=== PATIENT | female | born 1945 | race Caucasian/White ===

== ENCOUNTER → 2016-07-25 | Outpatient (CLI) | payer MEDICARE ==
[~2016-07-25] MED LIST: ENAL1TAB9 PO; SIMV20TA PO
--- OUTSIDE RECORDS SUMMARY | 2016-07-25 11:17 | XMS REPORT | Continuity of Care Document ---
Author Author [facility] Organization [facility] Address Unknown Phone Unavailable Allergies Medications Problems Date Dx Coded Attending Type Code Diagnosis Diagnosed By 07/03/2015 Ot V76.12 07/03/2015 Ot 793.82 07/03/2015 Ot V76.12 07/03/2015 LEEANN LUO MD Ot V76.12 07/03/2015 LEEANN LUO MD Ot V76.12 08/01/2015 LUCIO CHAN APRN Ot Z12.31 Procedures Results Encounters ACCT No. Visit Date/Time Discharge Status Pt. Type Provider Facility Loc./Unit Complaint [id number] 12/09/2013 11:03:00 2013 23:59:59 CLS Outpatient LEEANN LUO MD [facility] [id number] 11/30/2012 08:57:00 2012 23:59:59 CLS Outpatient LEEANN LUO MD [facility] [id number] 07/03/2015 11:39:00 ACT Outpatient LUCIO CHAN APRN [facility] [id number] 01/09/2012 09:28:00 Document Registration [id number] 01/09/2011 08:02:00 Document Registration
--- NOTE | 2016-07-29 20:06 | Diagnostic Imaging Report ---
Bilateral screening mammogram The current study was also evaluated with a Computer Aided Detection (CAD) system. Indication: Screening. No current complaints stated on the questionnaire. COMPARISON: 07/03/15 FINDINGS: The breasts are composed of scattered fibroglandular densities. Occasional punctate calcifications seen. There is a biopsy clip in the right breast. Allowing for technique and positional differences, no suspicious change is seen. IMPRESSION: No significant change. ACR BI-RADS Category 2: Benign findings. Result letter will be mailed to the patient. Note: At least 10% of breast cancer is not imaged by mammography. Dictated by: Dictated on workstation # [id number]
== END ==
LOC: RAD 11:15
PROVIDERS: ATTEND Family Medicine
DX: Z12.31 Encounter for screening mammogram for malignant neoplasm of breast (principal)
CPT/HCPCS: 77067

== ENCOUNTER 2016-10-09 05:47 | Outpatient (CLI) | payer MEDICARE ==
[~2016-10-09] VITALS: Ht 154.9 cm; Wt 68.0 kg
[2016-10-09] MEDS ORDERED: ENAL1TAB9 PO ×2 (12:27)
[2016-10-09] MEDS ORDERED: SIMV20TA PO ×2 (12:27)
== END 2016-10-09 12:28 ==
LOC: PREOP 05:47
PROVIDERS: ATTEND Surgery
DX: Z01.818 Encounter for other preprocedural examination (principal); R19.5 Other fecal abnormalities

== ENCOUNTER 2016-10-13 08:42 | Day surgery (SDC) | payer MEDICARE ==
[~2016-10-13] VITALS: Ht 154.9 cm; Wt 68.0 kg
[2016-10-13 08:50] VITALS: BP 141/75
[2016-10-13] MEDS ORDERED: NS IV 500 ML 500 ML IV PRN (08:50)
--- NOTE | 2016-10-13 08:56 | Conscious Sedation/ASA ---
Conscious Sedation Pre-Proced Time Reviewed: 08:56 ASA Class: 2 Airway Mallampati Classification: ([place] appropriate class) I. II. III, IV Lungs Heart ASA score ASA 1: a normal healthy patient ASA 2: a patient with a mild systemic disease (mid diabetes, controlled hypertension, obesity ASA 3: a patient with a severe systemic disease that limits activity (angina , COPD, prior Myocardial infarction) ASA 4: a patient with an incapacitating disease that is a constant threat to life (CHF, renal failure) ASA 5: a moribund patient not expected to survive 24 hrs. (ruptured aneurysm) ASA 6: a declared brain patient whose organs are being harvested. For emergent operations, add the letter E after the classification Grade 1 Sedation Plan: Discussed options with patient/fam Note The patient is an appropriate candidate to undergo the planned procedure, sedation, and anesthesia. The patient immediately re-assessed prior to indication. DELMI CUMMINS MD October 13, 2016 8:56 am
[2016-10-13] MEDS ORDERED: NALOXONE 0.4 MG/ML 1 ML (NARCAN) VIAL IVP PRN (09:00)
[2016-10-13] MEDS ORDERED: FLUMAZENIL (ROMAZICON) 0.1 MG/ML 5 ML VIAL INJ PRN (09:00)
[2016-10-13] MEDS ORDERED: NS IV 500 ML 500 ML ONE (09:03)
[2016-10-13] MEDS ORDERED: MIDAZOLAM 2 MG/2 ML (VERSED) VIAL ONE ×3 (10:50→10:51)
[2016-10-13] MEDS ORDERED: fentaNYL INJECTION 100 MCG/2 ML AMP ONE (10:51)
[2016-10-13] MEDS: fentaNYL INJECTION 100 MCG/2 ML AMP IVP PRN ×2 (10:55→11:07)
[2016-10-13] MEDS: MIDAZOLAM 2 MG/2 ML (VERSED) VIAL IVP PRN ×3 (10:57→11:10)
--- NOTE | 2016-10-13 11:25 | Endoscopy Procedure Report ---
Endoscopy Report Date: October 13, 2016 Preoperative Diagnosis: heme-positive stools Study Performed: Colonoscopy Procedure Instrument: Colonoscope Endo Procedure/Findings Findings 1.: Polyp, Diverticulosis, Internal Hemorrhoids Recommendations: Recommendations: 1.: Colonscopy in 3 years Copy Copies To 1: PEGGY JACKSON MD, XAVIER M MD October 13, 2016 11:25 am
--- NOTE | 2016-10-13 11:26 | Discharge Inst-Simple/Standard ---
Discharge Inst-Standard Discharge Medications New, Converted or Re-Newed RX: Other Patient Instructions/Follow Up Plan of Care/Instructions/FU: repeat colonoscopy in 3 Activity as Tolerated: Yes Discharge Diet: No Restrictions DELMI CUMMINS MD October 13, 2016 11:26 am
[2016-10-13 11:30] VITALS: BP 128/72
[2016-10-13 12:00] VITALS: BP 127/72
[2016-10-13 12:45] VITALS: BP 127/72
--- NOTE | 2016-10-13 21:02 | OPERATIVE REPORT ---
DATE OF SERVICE: 10/13/2016 PROCEDURE PERFORMED: 1. Colonoscopy. 2. Snare polyp. SURGEON: Dr. Cummins INDICATION FOR PROCEDURE: The patient was found to have heme-positive stools. She has never undergone screening colonoscopy in her lifetime. It was, therefore, felt reasonable to perform colonoscopy for further evaluation. Informed consent was obtained after reviewing the procedure in detail. DESCRIPTION OF PROCEDURE: She was placed in left lateral decubitus position and her vital signs were monitored. Conscious sedation was achieved using Versed and phenytoin. Examination over the perianal area revealed some external hemorrhoids and skin tags. Digital examination was, otherwise, unremarkable. Colonoscope was introduced into rectum and advanced all the way up to the cecum. The quality of bowel preparation was reasonable. Scope was then withdrawn slowly and the mucosa examined in a systematic fashion. FINDINGS: 1. Internal hemorrhoids, the source of her bleeding. 2. Very few sigmoid diverticuli. 3. A 2cm polyp at the cecum that was snared and retrieved. She tolerated procedure well and was taken back to the nursing area in a stable condition. IMPRESSION: Heme-positive stools, 2 mm cecal polyp excised. Recommend repeating in 3 years. Job ID: [id number] DocumentID: [id number] Dictated Date: 10/13/2016 11:22:50 Field Marketing Coordinator Date: 10/13/2016 21:02:35 Dictated By: DELMI CUMMINS MD [facility]ITALLeonardo
== END 2016-10-13 12:45 | disposition home or self-care (01) ==
LOC: ENDO 08:42
PROVIDERS: ATTEND Surgery
DX: K63.5 Polyp of colon (principal); K64.8 Other hemorrhoids; K57.90 Diverticulosis of intestine, part unspecified, without perforation or abscess without bleeding; I10 Essential (primary) hypertension; E78.5 Hyperlipidemia, unspecified

== ENCOUNTER → 2018-02-15 | Outpatient (CLI) | payer MEDICARE ==
--- NOTE | 2018-02-15 19:24 | Diagnostic Imaging Report ---
INDICATION: Routine screening. Comparison is made with prior mammogram from 07/25/2016 and 07/03/2015. 2-D and 3-D bilateral screening mammography was performed with CAD. The current study was also evaluated with a Computer Aided Detection (CAD) system. FINDINGS: Both breasts are heterogeneously dense, limiting the sensitivity of mammography. Fibronodular parenchymal pattern is present and appears similar to prior study. No new mass or malignant-appearing microcalcifications are seen. The axillae are unremarkable. IMPRESSION: No mammographic features suspicious for malignancy are identified. ACR BI-RADS Category 2: Benign findings. Result letter will be mailed to the patient. Note: At least 10% of breast cancer is not imaged by mammography. Dictated by: Dictated on workstation # [id number]
== END ==
LOC: RAD 10:04
PROVIDERS: ATTEND Nurse Practitioner Family
DX: Z12.31 Encounter for screening mammogram for malignant neoplasm of breast (principal)
CPT/HCPCS: 77067

== ENCOUNTER → 2019-03-01 | Outpatient (CLI) | payer MEDICARE ==
--- NOTE | 2019-03-01 20:43 | Diagnostic Imaging Report ---
EXAM: Digital mammogram bilateral screening COMPARISON: This study was compared to the prior exam of 02/05/2018, 07/25/2016 and 07/03/2015. There are no current complaints. The current study was also evaluated with a Computer Aided Detection (CAD) system. FINDINGS: The fibroglandular tissue in both breasts is heterogeneously dense. This does limit the sensitivity of this exam. Overall, there does not appear to have been any significant change when compared to the prior study. No primary or secondary sign of malignancy is noted. The stereotactic clip in the right breast seen previously is again evident. IMPRESSION: There is no radiographic evidence for malignancy. ACR BI-RADS Category 1: Negative. Result letter will be mailed to the patient. Note: At least 10% of breast cancer is not imaged by mammography. Dictated by: Dictated on workstation # [id number]
== END ==
LOC: RAD 11:26
PROVIDERS: ATTEND Nurse Practitioner Family
DX: Z12.31 Encounter for screening mammogram for malignant neoplasm of breast (principal)
CPT/HCPCS: 77067

== ENCOUNTER → 2019-07-19 | Outpatient (CLI) | payer MEDICARE ==
--- NOTE | 2019-07-19 11:29 | Diagnostic Imaging Report ---
INDICATION: Abdominal pain. EXAMINATION: KUB at 11:17 a.m. FINDINGS: Bowel gas pattern is normal. There are no pathologic masses or calcifications. There are some calcified phleboliths in the pelvis. IMPRESSION: No acute abnormalities in the abdomen. Patient does have a large amount of fecal material in the ascending colon. Dictated by: Dictated on workstation # [id number]
--- NOTE | 2019-07-19 11:34 | Diagnostic Imaging Report ---
INDICATION: Pain. Three views were obtained. FINDINGS: Bones are osteopenic. Alignment is normal. Vertebral body heights are well maintained. There is no fracture or traumatic subluxation. There are mild degenerative changes. IMPRESSION: Osteopenia and mild thoracic spondylosis, otherwise unremarkable. Dictated by: Dictated on workstation # [id number]
== END ==
LOC: RAD 10:57
PROVIDERS: ATTEND Nurse Practitioner Family
DX: M85.80 Other specified disorders of bone density and structure, unspecified site (principal); M47.814 Spondylosis without myelopathy or radiculopathy, thoracic region; R10.11 Right upper quadrant pain
CPT/HCPCS: 72072; 74018

== ENCOUNTER → 2020-03-06 | Outpatient (CLI) | payer MEDICARE ==
--- NOTE | 2020-03-06 12:09 | Diagnostic Imaging Report ---
INDICATION: Postmenopausal state, screening for osteoporosis COMPARISON: None available FINDINGS: AP Spine L1-L4: [BMD (g/cm2): 0.970] [T-Score: -1.9] [Z-Score: -0.3] [BMD Previous: na] [BMD % Change: na] LT Hip Neck: [BMD (g/cm2): 0.645] [T-Score: -2.8] [Z-Score: -1.0] LT Hip Total: [BMD (g/cm2):0.810] [T-Score:-1.6] [Z-Score: 0.1] [BMD Previous: na] [BMD % Change: na] RT Hip Neck: [BMD (g/cm2):0.680] [T-Score:-2.6] [Z-Score:-0.7] RT Hip Total: [BMD (g/cm2):0.792] [T-score:-1.7] [Z-Score:-0.1] [BMD Previous:na] [BMD % Change:na] *Indicates significant change from prior examination based on 95% confidence level. World Health Organization criteria for BMD interpretation classify patients as Normal (T-score at or above -1.0), Osteopenic (T-score between -1.0 and -2.5) or Osteoporotic (T-score at or below -2.5). LIMITATIONS AND MODIFICATION: None. FRACTURE RISK (FRAX SCORE): The ten year probability of (%): Major Osteoporotic Fracture: [19.3] Hip Fracture: [7.0] IMPRESSION: 1. Osteoporosis. 2. Baseline examination. 3. See below National Osteoporosis Foundation guidelines on when to potentially initiate pharmacologic therapy. Based on the National Osteoporosis Foundation Guidelines, pharmacologic treatment should be initiated in any of the following, unless clinical conditions suggest otherwise: * Any patient with prior fragility fracture of the hip or vertebrae. A spine fracture indicates 5X risk for subsequent spine fracture and 2X risk for subsequent hip fracture. * Osteoporosis (T-score <-2.5). * Postmenopausal women and men age 50 and older with low bone mass/osteopenia (T-score between -1.0 and -2.5) by DXA and 10-year major osteoporotic fracture greater than 20% or a 10-year probability of hip fracture greater than 3%. These fracture risks are supplied above in the FRAX score, if applicable. * Clinician judgement and/or patient preferences may indicate treatment for people with 10-year fracture probabilities above or below these levels. Dictated by: Dictated on workstation # [id number]
--- NOTE | 2020-03-06 13:03 | Diagnostic Imaging Report ---
INDICATION: Routine screening. COMPARISON: 03/01/2019 and 02/15/2018. TECHNIQUE: 2D and 3D bilateral screening mammography was performed with CAD. FINDINGS: Scattered fibroglandular densities are identified bilaterally. A biopsy marker clip in the right breast is again noted. The parenchymal pattern is stable bilaterally. No mass or malignant appearing microcalcifications are seen. The axillae are unremarkable. IMPRESSION: No mammographic features suspicious for malignancy are identified. ACR BI-RADS Category 2: Benign findings. Result letter will be mailed to the patient. Note: At least 10% of breast cancer is not imaged by mammography. Dictated by: Dictated on workstation # [id number]
== END ==
LOC: RAD 09:04
PROVIDERS: ATTEND Family Medicine
DX: Z12.31 Encounter for screening mammogram for malignant neoplasm of breast (principal); Z13.820 Encounter for screening for osteoporosis; M81.0 Age-related osteoporosis without current pathological fracture; Z78.0 Asymptomatic menopausal state
CPT/HCPCS: 77063; 77067; 77080

== ENCOUNTER → 2021-07-15 | Outpatient (CLI) | payer MEDICARE | LOC: RAD 09:09 | PROVIDERS: ATTEND Family Medicine | DX: Z12.31 Encounter for screening mammogram for malignant neoplasm of breast (principal) | CPT/HCPCS: 77063; 77067 ==

== ENCOUNTER → 2022-07-29 | Outpatient (CLI) | payer MEDICARE ==
[~2022-07-29] MED LIST changes: +SIMV-333 PO; -SIMV20TA PO
--- NOTE | 2022-07-29 11:25 | Diagnostic Imaging Report ---
INDICATION: Postmenopausal state, screening for osteoporosis COMPARISON: 03/06/2020 FINDINGS: AP Spine L1-L4: [BMD (g/cm2): 0.977] [T-Score: -1.9] [Z-Score: -0.2] [BMD Previous: 0.970] [BMD % Change: 0.7] LT Hip Neck: [BMD (g/cm2): 0.692] [T-Score: -2.5] [Z-Score: -0.5] LT Hip Total: [BMD (g/cm2):0.856] [T-Score:-1.2] [Z-Score: 0.6] [BMD Previous: 0.810] [BMD % Change: 5.7] RT Hip Neck: [BMD (g/cm2):0.721] [T-Score:-2.3] [Z-Score:-0.3] RT Hip Total: [BMD (g/cm2):0.835] [T-score:-1.4] [Z-Score:0.4] [BMD Previous:0.792] [BMD % Change:5.4] *Indicates significant change from prior examination based on 95% confidence level. World Health Organization criteria for BMD interpretation classify patients as Normal (T-score at or above -1.0), Osteopenic (T-score between -1.0 and -2.5) or Osteoporotic (T-score at or below -2.5). LIMITATIONS AND MODIFICATION: None. FRACTURE RISK (FRAX SCORE): The ten year probability of (%): Major Osteoporotic Fracture: [17.9] Hip Fracture: [5.9] IMPRESSION: 1. Osteoporosis. 2. Bone mineral density within the right hip has definitely increased since the prior examination. Bone mineral density within the lumbar spine has not significantly changed. 3. See below National Osteoporosis Foundation guidelines on when to potentially initiate pharmacologic therapy. Based on the National Osteoporosis Foundation Guidelines, pharmacologic treatment should be initiated in any of the following, unless clinical conditions suggest otherwise: * Any patient with prior fragility fracture of the hip or vertebrae. A spine fracture indicates 5X risk for subsequent spine fracture and 2X risk for subsequent hip fracture. * Osteoporosis (T-score <-2.5). * Postmenopausal women and men age 50 and older with low bone mass/osteopenia (T-score between -1.0 and -2.5) by DXA and 10-year major osteoporotic fracture greater than 20% or a 10-year probability of hip fracture greater than 3%. These fracture risks are supplied above in the FRAX score, if applicable. * Clinician judgement and/or patient preferences may indicate treatment for people with 10-year fracture probabilities above or below these levels. Dictated by: Dictated on workstation # [id number]
--- NOTE | 2022-07-29 15:15 | Diagnostic Imaging Report ---
Indication: Routine screening. Comparison is made with prior mammograms from 07/15/2021 and 03/06/2020. 2-D and 3-D bilateral screening mammography was performed with CAD. Both breasts are heterogeneously dense, limiting the sensitivity of mammography. Fibronodular parenchymal pattern appears to be stable. A biopsy marker clip in the right breast is again noted. No spiculated mass or malignant-appearing microcalcifications are seen. Axillae are unremarkable. IMPRESSION: BI-RADS Category 2 No mammographic features suspicious for malignancy are identified. ACR BI-RADS Category 2: Benign findings. Result letter will be mailed to the patient. Note: At least 10% of breast cancer is not imaged by mammography. Dictated by: Dictated on workstation # [id number]
== END ==
LOC: RAD 09:38
PROVIDERS: ATTEND Nurse Practitioner Family
DX: Z12.31 Encounter for screening mammogram for malignant neoplasm of breast (principal); Z13.820 Encounter for screening for osteoporosis; M81.0 Age-related osteoporosis without current pathological fracture; Z78.0 Asymptomatic menopausal state
CPT/HCPCS: 77063; 77067; 77080